=== PATIENT | female | born 1985 | race Caucasian/White ===

== ENCOUNTER 2016-11-28 10:34 | Emergency (ER) | payer SELFPAY ==
[2016-11-28 10:38] VITALS: BP 150/97; PULSE 115; TEMP 99.1; BMI 37.2
[2016-11-28] MEDS ORDERED: ACETAMINOPHEN 325 MG/TAB TABLET PO ONE (10:54)
[2016-11-28] MEDS ORDERED: ONDANSETRON HCL 4 MG ODT TAB PO ONE (10:54)
--- NOTE | 2016-11-28 10:56 | EDPRACDOC ---
- General Information Chief Complaint: Flu-Like Symptoms Stated Complaint: N/V, DIZZINESS Time Seen by Provider: 11/28/16 10:50 Information Source: Patient Mode Of Arrival: Car Home Medications: Home Medications Ciprofloxacin HCl [Cipro] 500 mg PO BID #14 tab 11/28/16 Ibuprofen 800 mg PO TID PRN #30 tablet 11/28/16 Oseltamivir Phosphate [Tamiflu] 75 mg PO BID #10 capsule 11/28/16 Promethazine [Phenergan] 25 mg PO Q4-6H PRN #15 tab 11/28/16 Allergies/Adverse Reactions: Allergies Allergy/AdvReac Type Severity Reaction Status Date / Time No Known Allergies Allergy Verified 11/28/16 10:38 - History of Present Illness Onset: 2 DAYS HPI: Pt c/o fever, chills, earache, sore throat, congestion, non productive cough, n/ v, body aches, back pain x 2 days. Denies cp, sob, abd pain, rash. Shortness of Breath: None Relevant History of: Reports: None Cough: Reports: Non-productive Rhinorrhea: Reports: Clear Fever Severity/Quality: Reports: low grade Ear Symptoms: Reports: Earache Associated Signs & Symptoms: Reports: Cough, Earache, Fever, Headache, Nasal Symptoms, Sore Throat, Nausea, Vomiting, Myalgia Oral Intake: Decreased Urinary Output: Normal ED Past Medical History - History Reviewed Yes Nurses notes reviewed and agree except as marked - Patient Medical History Surgical History: Denies: Hysterectomy - Social Medical History Smoking Status: Never smoker ETOH: None Substance Abuse: None EDM Review of Systems - Review of Systems Constitutional: Chills, Fever Ears: Pain Throat: Pain Nose: Congestion Mouth: No Symptoms Reported. negative: Pain, Drooling Respiratory: Cough Cardiovascular: No Symptoms Reported. negative: Chest Pain, Palpitations, Syncope, Edema, Orthopnea, PND, Skin Mottling, Cyanosis Gastrointestinal: Nausea, Vomiting Genitourinary: No Symptoms Reported. negative: Dysuria, Hematuria, Frequency, Discharge, Bleeding, Testicular Pain, Neurological: Headache Musculoskeletal: Back Integumentary: No Symptoms Reported. negative: Itching, Rash, Bruising, Wound Allergic/Immunologic: No Symptoms Reported. negative: Hives, Itching Hematologic: No Symptoms Reported. negative: Lymphadenopathy, Easy Bruising, Easy Bleeding Psychiatric: No Symptoms Reported. negative: Anxiety, Depression, Hallucinations, Insomnia, Suicidal - Physical Exam Constitutional: Alert Oriented to: Time, Person, Place Last recorded Vital Signs: Last Vital Signs Temp 99.1 F 11/28/16 10:35 Pulse 115 11/28/16 10:35 Resp 18 11/28/16 10:35 BP 150/97 11/28/16 10:35 Pulse Ox 98 11/28/16 10:35 Oxygen Pulse Oxygen Saturation 98 O2 Device Oxygen Flow Rate Fraction of Inspired Oxygen ( FIO2) - HEENT Head: Normal ( normocephalic) Eye Exam: Normal (PERRL, EOMI, Sclera white) Oropharynx: Red, Tonsillar Hypertrophy Tympanic Membrane: Redness (bilateral) ENT EAC: Normal Nose: Congestion Neck: Normal (FROM, trachea at midline) - Respiratory/Cardiovascular Respiratory: Normal - CTA (BBS clear to auscultation without adventitious sounds ) Cardiovascular: Normal (RRR without murmur, gallop or rub) - GI Auscultation: Normal (NABS) Palpation: Normal (Soft,No rebound or guarding, non distended) Tenderness: Non tender - Musculoskeletal Back: Normal (Non-Tender) Extremities: Normal (Normal tone, Pulses 2+ No cyanosis or edema, FROM) - Integumentary Skin: Normal, Warm, Dry Lymphatics: Normal (no adenopathy) - Neurologic Memory Impaired: Normal Motor Function: Normal (Normal tone, Pulses 2+ No cyanosis or edema, FROM) Mood Description: Normal Perception: Normal - Differential Diagnosis Bronchitis, Influenza A B, Otitis Media, Streptococcal, URI, Viral - Results 11/28/16 11:25 Laboratory Results - last 24 hr 11/28/16 11/28/16 10:42 10:42 Urine Color Yellow Urine Clarity Cldy Urine pH 5.0 Ur Specific [place] 1.020 Urine Protein Neg Urine Glucose (UA) Neg Urine Ketones Neg Urine Occult Blood Neg Urine Nitrite Neg Urine Bilirubin Neg Urine Urobilinogen <2.0 Ur Leukocyte Esterase 2+ H Urine RBC 2-5 Urine WBC 20-30 H Ur Epithelial Cells 3+ Urine Bacteria 2+ H Hyaline Casts 0-2 Urine Mucus Occ Urine Test Neg Decision Time to Discharge: 11:25 - Departure Disposition: Home Condition: Good Final Diagnosis: Influenza UTI (urinary tract infection) Qualifiers: Urinary tract infection type: acute cystitis Hematuria presence: without hematuria Qualified Code(s): N30.00 - Acute cystitis without hematuria Instructions: Urinary Tract Infection in Women (ED), Dysuria, Influenza (ED) Education/Counseling Given To: Patient Education/Counseling Given Regarding: Diagnosis, Treatment, Follow Up Referrals: None,No Provider [Primary Care Provider] - One Week Osvaldo Flores II, MD [Staff Physician] - One Week Prescriptions: New Ciprofloxacin HCl [Cipro] 500 mg PO BID #14 tab Ibuprofen 800 mg PO TID PRN #30 tablet PRN Reason: Pain Oseltamivir Phosphate [Tamiflu] 75 mg PO BID #10 capsule Promethazine [Phenergan] 25 mg PO Q4-6H PRN #15 tab PRN Reason: Nausea/Vomiting Additional Instructions: Drink sips of Gatorade every 2-3 minutes while awake. Do NOT drink large volumes of fluid at once. If you vomit, take the nausea-vomiting medicine prescribed, wait ~ 30 minutes, and restart the sipping process. Return to the Emergency Department if you think you are getting dehydrated, have persistent abdominal pain that is unrelenting, have worse or different symptoms, or any concerns.
[2016-11-28 11:21] LABS: LEUKOCYTES/URINE 2+ (NEGATIVE); NITRITE/URINE NEG (NEGATIVE); URINE OCCULT BLOOD NEG (NEG/TRACE); WBC/URINE 20-30 (0-5)
== END 2016-11-28 11:35 | disposition home or self-care (01) ==
LOC: ED 10:34
DX: J11.1 Influenza due to unidentified influenza virus with other respiratory manifestations (principal); N30.00 Acute cystitis without hematuria
CPT/HCPCS: 81001; 81025; 99283; J3490